=== PATIENT | female | born 1975 | race Caucasian/White ===

== ENCOUNTER → 2016-11-22 | Outpatient (CLI) | payer OTHER | LOC: CIMAGING 15:40 | PROVIDERS: ATTEND Family Medicine | DX: M25.511 Pain in right shoulder (principal) | CPT/HCPCS: 73000-PO ==

== ENCOUNTER 2017-09-02 15:16 | Inpatient (IN) | payer OTHER ==
[2017-09-02] MEDS ORDERED: CITRIC ACID/SODIUM CITRATE 30 ML UDCUP PO ONE (17:50)
[2017-09-02] MEDS ORDERED: LR 500 ML IV ONE (17:50)
[2017-09-02] MEDS ORDERED: LR 1,000 ML IV SCH (18:00)
[2017-09-02 18:34] LABS: PLATELET COUNT 206 10^3/uL (150-400)
--- NOTE | 2017-09-02 19:22 | PREANESOB ---
Obstetric Pre-Anesthesia Info - General Info Proposed Procedure: Repeat C section in early labor NPO Start Time: 12:30 : 4 Para: 1 CAREY: 09/12/17 Gestational Age: 38 week(s) and 4 day(s) - Info Status: Full Term - Labor Status Section History: Repeat Labor Epidural: No (Spinal anesthesia) Anesthesia Allergies/Adverse Reactions: Allergy/AdvReac Type Severity Reaction Status Date / Time No Known Allergies Allergy Verified 11/26/11 11:56 Home Medications: Medication Instructions Recorded Miscellaneous Medical Supply [NO 1 ea MISC AD 11/26/11 HOME MEDS] Amox Tr/K Clav (Augmentin) 500 mg PO TID #30 tab 06/06/14 [Augmentin 500/125 MG TAB (*)] Visit Medications: Generic Name Dose Route Start Last Admin Trade Name Freq PRN Reason Stop Dose Admin Lactated Ringer's 1,000 mls @ 125 mls/hr 09/02/17 18:00 Lr IV 09/03/17 17:59 CONT YEN Cefazolin Sodium/Dextrose 100 mls @ 200 mls/hr 09/02/17 19:30 Ancef 2 Gm IV 09/02/17 19:59 ONCE ONE Discontinued Medications Generic Name Dose Route Start Last Admin Trade Name Freq PRN Reason Stop Dose Admin Citric Acid/Sodium Citrate 30 ml 09/02/17 17:50 Bicitra PO 09/02/17 17:51 ONCALL ONE Lactated Ringer's 500 mls @ 0 mls/hr 09/02/17 17:50 Lr IV 09/02/17 17:51 ONCE ONE As Directed - Anesthesia History Response to Local Anesthetics: Normal Anesthesia & Operative History: No Prior Problems Family Anesthesia History: Negative - Social History Substance Use/Abuse: Denies - Vital Signs Latest Vital Signs (Nursing): Temp Pulse Resp BP Pulse Ox 37.3 C 60 16 133/70 H 09/02/17 18:27 09/02/17 18:27 09/02/17 18:27 09/02/17 18:27 Height/Weight (Nursing): Height 165.1 cm Weight 76.204 kg - Focused Exam Neck exam: FROM Mallampati Score: Class 1 Mouth exam: normal dental/mouth exam Pulmonary: no respiratory distress, no rales or rhonchi Cardiovascular: regular rate and rhythym, no murmur, rub, or gallop Labs: 09/02/17 18:15 09/02/17 18:15 Uric Acid 5.3 mg/dL (2.5-6.8) 09/02/17 18:15 Total Bilirubin 0.5 mg/dL (0.1-1.4) 09/02/17 18:15 Conjugated Bilirubin 0.4 mg/dL (0.0-0.5) 09/02/17 18:15 Unconjugated Bilirubin 0.1 mg/dL (0.0-1.1) 09/02/17 18:15 AST 24 IU/L (14-46) 09/02/17 18:15 ALT 27 IU/L (9-52) 09/02/17 18:15 Lactate Dehydrogenase 556 IU/L (313-618) 09/02/17 18:15 - Plan Consent Signed and on Chart: Yes
[2017-09-02] MEDS ORDERED: ceFAZolin 2 GM/DEXTROSE 100 ML IV ONE (19:30)
[2017-09-02] MEDS ORDERED: morphINE PF 5 MG/10 ML INJ ONE (19:36)
[2017-09-02] MEDS ORDERED: GLYCOPYRROLATE 0.2 MG/1 ML VIAL ONE (20:11)
[2017-09-02] MEDS ORDERED: PHENYLEPHRINE HCL 100 MCG/ML SYR ONE ×2 (20:11→20:32)
[2017-09-02] MEDS ORDERED: ONDANSETRON 4 MG/2 ML VIAL ONE (20:12)
[2017-09-02] MEDS ORDERED: OXYTOCIN 100 UNITS/10 ML VIAL ONE (20:12)
[2017-09-02] MEDS ORDERED: DEXAMETHASONE 4 MG/ML VIAL ONE (20:33)
--- NOTE | 2017-09-02 20:33 | GHP ---
[f rep st] PREOP HISTORY AND PHYSICAL DATE OF ADMISSION: 09/02/2017 ADMISSION DIAGNOSES: 1. Intrauterine at 38-4/7 weeks' gestation. 2. History of previous low transverse section. 3. Mild preeclampsia. HISTORY OF PRESENT ILLNESS: The patient is a 41-year-old 5, para 1-0-3- 1, who has a history of a previous low transverse section. She is scheduled for a repeat section on Monday; however, she presented to labor and delivery with complaint of contractions that have been increasing somewhat throughout the day. She also just feels off. The patient is not in active labor. However, she was noted to have blood pressures in the 140s over high 80s to 90 and a blood pressure of 160s over 100s. So decision was made to proceed with her repeat low transverse section. The patient had planned to have a repeat section and declined trial of labor. Risks and benefits of the procedure were reviewed with the patient, and patient has been properly consented. The patient's estimated date of confinement is 2017, dated by last menstrual period of 11/25/2016, consistent with a 1st- trimester ultrasound. She transferred to [facility] at 22 weeks' gestation and her course has been uncomplicated. PAST MEDICAL HISTORY: Negative with exception of possible interstitial cystitis. MEDICATIONS: vitamins and iron, baby aspirin, and vitamin D. SURGICAL HISTORY: section. ALLERGIES: No known drug allergies. FAMILY MEDICAL HISTORY: Noncontributory. SOCIAL HISTORY: Patient denies tobacco, alcohol, or drug use. FAMILY MEDICAL HISTORY: Noncontributory. 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 Periods every 28 days lasting 4-5 days. She is a 5, para 1-0-3-1. In 2013, she had a 5-week spontaneous . In 02/2014, she had a spontaneous at 6 weeks, and 02/2015 she had an emergent section done at [facility] at 37-3/7 weeks' gestation. She had severe preeclampsia. She was observed overnight and then progressed and had spontaneous rupture of membranes and had a somewhat urgent section for intolerance of labor. course was complicated by urinary retention. In 07/2015, she had a spontaneous . Patient denies any history of any abnormal Pap smears or sexually transmitted diseases. REVIEW OF SYSTEMS: 10-point review of systems is negative with the exception of just feeling off. She denies headache, changes in vision, nausea, vomiting, fevers, or chills. There is good movement. She denies any loss of fluid or vaginal bleeding. PHYSICAL EXAMINATION: VITAL SIGNS: Elevated with blood pressures of 130s to 160s over 80s to 90s. GENERAL APPEARANCE: Alert and oriented x3. MUSCULOSKELETAL: Grossly intact. PSYCH: Grossly intact. NECK: Mobile and supple. HEART: Rate is irregular irregular. LUNGS: Clear to auscultation bilaterally. ABDOMEN: Gravid, nondistended, nontender. EXTREMITIES: Reveal no calf tenderness or edema. PELVIC: Deferred. status is reassuring. LABORATORY DATA: PH labs are negative. The patient's labs: Blood type B positive, antibody screen negative. GBS positive. Rubella immune. HBsAg negative. HIV negative. Her histogram glucose was 90. ASSESSMENT/PLAN: 41-year-old, 5, para 1-0-3-1 at 38-4/7 weeks' gestation with a history of previous low transverse section. She will have a repeat low transverse section. She declines tubal ligation. Preeclampsia will be monitoring her blood pressures and start magnesium sulfate if they meet severe criteria. /[id number]/MODL MTDD
[2017-09-02] MEDS ORDERED: POLYETHYLENE GLYCOL 3350 17 GM PKT PO PRN (21:07)
[2017-09-02] MEDS ORDERED: BISACODYL 10 MG SUPP PR PRN (21:07)
[2017-09-02] MEDS ORDERED: MAGNESIUM HYDROXIDE 30 ML UDCUP PO PRN (21:07)
[2017-09-02] MEDS ORDERED: SIMETHICONE 80 MG TAB CHEW PO PRN (21:07)
[2017-09-02] MEDS ORDERED: LACTULOSE 20 GM/30 ML UDCUP PO PRN (21:07)
--- NOTE | 2017-09-02 21:16 | OBDEL ---
Info Type: Repeat Presentation at Delivery: Vertex GBS+: Yes Intrapartum Medications: Discontinued Medications Generic Name Dose Route Start Last Admin Trade Name [place] PRN Reason Stop Dose Admin Citric Acid/Sodium Citrate 30 ml 09/02/17 17:50 09/02/17 19:21 Bicitra PO 09/02/17 17:51 30 ml ONCALL ONE Administration Cefazolin Sodium/Dextrose 100 mls @ 200 mls/hr 09/02/17 19:30 09/02/17 19:21 Ancef 2 Gm IV 09/02/17 19:59 100 mls ONCE ONE Administration Indications for Delivery: Gestational Hypertension Vaginal Delivery - Labor and Delivery Onset of Contractions Date: 09/02/17 Onset of Contractions Time: 10:00 Operative Report - Delivery Pre-op Diagnoses: iup 38 4/7 weeks, hx of prior section, early labor declines trial of labor, gestational hypertension Post-op Diagnoses: same as preop plus occiput posterior History of Prior Section: Yes Number of Prior Sections: 1 Indications for Prior Section: Non-reas. Status Indications for Current Section: Elective/Repeat, Other (Specify) ( gestational hypertension) Surgeon: Terrie Camarena Felled Seam Operator Chainstitch: Aiyana Magana Anesthesiologist: Celeste Sotelo Complications: None EBL: 800 Data CAREY: 09/12/17 Gestational Age: 39 week(s) and 2 day(s) [place] Delivery Date: 09/02/17 Delivery Time: 20:13 Sex of Infant: Male Score (1 Min): 8 Score (5 Min): 9 ICD10 Worksheet Patient Problems: Problems Problem Status Onset delivery delivered Acute Gestational hypertension Acute - ICD10 Problem Qualifiers (1) delivery delivered (2) Gestational hypertension
[2017-09-02] MEDS ORDERED: KETOROLAC 30 MG/1 ML SDV ONE (21:20)
[2017-09-02] MEDS ORDERED: fentaNYL 100 MCG/2 ML INJ IVP PRN (21:21)
[2017-09-02] MEDS ORDERED: ONDANSETRON 4 MG/2 ML VIAL IVP PRN (21:21)
[2017-09-02] MEDS ORDERED: NALOXONE HCL 0.4 MG/ML INJ IVP PRN (21:21)
[2017-09-02] MEDS ORDERED: HYDROmorphONE/DILAUDID 1 MG/ML INJ IVP PRN (21:21)
--- NOTE | 2017-09-02 21:35 | PDMN ---
Medical Necessity Medical necessity: C/M review: Patient meets INPT criteria [facility] S-350 Delivery: viable male . MD anticipates > 2 MN LOS for eval and TX of above.
[2017-09-03] MEDS: KETOROLAC 30 MG/1 ML SDV IVP SCH ×3 (03:37→15:22)
[2017-09-03] MEDS: HYDROCODONE/APAP 5/325 TAB PO PRN ×6 (03:45→22:11)
--- NOTE | 2017-09-03 05:24 | GOP ---
[f rep st] OPERATIVE REPORT DATE OF OPERATION: 09/02/2017 SURGEON: Terrie Camarena DO INDUSTRIAL CLEANER: Aiyana Magana CNM. ANESTHESIA: Spinal. ANESTHESIOLOGIST: Celeste Sotelo MD. PREOPERATIVE DIAGNOSIS: 1. Intrauterine at 38 and 4/7 weeks gestation. 2. History of previous low-transverse section. Declines trial of labor. 3. Early labor. 4. Gestational hypertension. POSTOPERATIVE DIAGNOSIS: 1. Intrauterine at 38 and 4/7 weeks gestation. 2. History of previous low-transverse section. Declines trial of labor. 3. Early labor. 4. Gestational hypertension. 5. Occiput posterior. PROCEDURE PERFORMED: Primary low-transverse section. FINDINGS: 1. Viable male in the occiput posterior cephalic presentation, delivered at 2012. Apgars wer e 8 and 9. 2. Intact placenta with 3-vessel cord. 3. Normal ovaries, uterus, and tubes. ESTIMATED BLOOD LOSS: 800 cc. INDICATIONS: Patient is a 41-year-old 5, para 1-0-3-1, who is 38 and 4/7 weeks' gestation. She has a history of previous low-transverse section and is scheduled for repeat n ext week. She did not feel very well today and began having contractions that were mild but increasi ng in frequency and intensity over the last several hours. She presented to Labor and Delivery and w as noted to have elevated blood pressures of the 130s to 160s/80s. Decision was made to proceed with a repeat section for diagnosis of gestational hypertension. Risks and benefits of the proc edure were reviewed with the patient, and the patient was properly consented. DESCRIPTION OF PROCEDURE: Patient was taken to the operating room with intravenous fluids in place. She was given 2 g of Ancef intravenously and seated on the operating room table where spinal anesthe geeta was obtained. She was then repositioned into the dorsal supine position with a leftward tilt and prepped and draped in normal sterile fashion. A Rubalcava catheter was placed. Venodynes were placed o n her lower extremities. Anesthesia was assessed and found to be adequate. A Pfannenstiel skin incision was then made 2 fingerbreadths above the pubic symphysis. The incision was then carried through to the underlying layer of fascia with a Bovie. The fascia was then nicked in the midline, and the fascial incision was extended laterally. The superior aspect of the fascial incision was then grasped with Beto, tented up, and the underlying rectus muscle dissected off blun tly with the Bovie. Attention was then turned to the inferior aspect of the fascial incision, which in a similar fashion was grasped with Beto's, tented up, and the underlying rectus muscle dissected off bluntly and with Bovie. The rectus muscle was then in the midline. The peritoneum wa s identified, tented up, and entered sharply with the Metzenbaum scissors. The incision was extended superiorly and inferiorly with excellent visualization of the bladder. The bladder blade was then i nserted. The vesicouterine peritoneum was then identified, tented up, and entered sharply with the M etzenbaum scissors. The incision was extended laterally, and a bladder flap was created digitally. The bladder blade was then reinserted. The uterus was then incised in low transverse fashion with th e scalpel. Clear fluid was noted. The uterine incision was extended laterally. The infant's head w as then delivered through the incision. Delayed cord clamping was done, and the cord was clamped x2 and cut, and the infant was handed off to awaiting nurse practitioner. Intact placenta with 3-vessel cord delivered without difficulty. The uterus was then cleared of all clots and debris and rotated to look at the ovaries and tubes, which were unremarkable. It was not exteriorized. The bl adder blade was then inserted. Four clamps were then used to grasp the angles of the uterus, and the hysterotomy was closed with 0 Vicryl in a running locked fashion. A 2nd 0 Vicryl stitch was used to imbricate the uterine incision. Hemostasis was assured. The gutters were cleared of all clots and debris. Peritoneum was reapproximated with 3-0 Vicryl in a running fashion. Rectus muscles reapprox imated with 2-0 Vicryl. The fascia was closed with 0 Vicryl in a running fashion. Ai's tissue w as reapproximated with 2-0 Vicryl in a running fashion. Subcuticular tissue was reapproximated with 3-0 Vicryl in a running fashion. The skin was then closed with manuel. Sponge, lap, and needle cou nt were correct x2 patient was transported to recovery room in stable condition. Bhavin #: [id number]/MODL
[2017-09-03] MEDS: SENNOSIDES/DOCUSATE SODIUM TAB PO SCH ×2 (08:17→22:11)
--- NOTE | 2017-09-03 10:40 | OBPP ---
Progress Note Assessment/Plan: Assessment: POD1 s/p planned RLTCS, presented at 38w4d with ctx's and newly increased BP - getting dx of Gestational HTN. - Routine cares, doing well subjectively. - Will dc catheter this AM and monitor voids and PVR's each time. Long discussion regarding her h/o retention. Apparently stayed in the hospital for up to a week with elevated PVR's, not emptying well, unclear true etiology. May need catheterization (straight or winn) if PVR's are quite high >700, for lesser volumes our goal for home will be < 100-150cc PVR to ensure she's emptying well enough. If PVR's are between 100-700 here PP okay to give Keisha a short amount of time to try again, but if next void not substantially more successful please contact orthotic/prosthetic practitioner doc. - BPS normal to low mild range, no concerning sx. - Would like to go home tomorrow if able, maybe Monday depending on BP and bladder. JM Subjective/ Course: 09/03/17 15:26 Keisha is doing very well this AM. Had a good night, a little nervous to get her catheter out due to h/o urinary retention after last delivery. Pain well controlled, tolerating diet, up and around. Objective: 09/03/17 05:45 09/02/17 18:15 Patient ABO/Rh A POSITIVE 09/02/17 18:40 Uric Acid 5.3 mg/dL (2.5-6.8) 09/02/17 18:15 Total Bilirubin 0.5 mg/dL (0.1-1.4) 09/02/17 18:15 Conjugated Bilirubin 0.4 mg/dL (0.0-0.5) 09/02/17 18:15 Unconjugated Bilirubin 0.1 mg/dL (0.0-1.1) 09/02/17 18:15 AST 24 IU/L (14-46) 09/02/17 18:15 ALT 27 IU/L (9-52) 09/02/17 18:15 Lactate Dehydrogenase 556 IU/L (313-618) 09/02/17 18:15 Temp Pulse Resp BP Pulse Ox 37.1 C 59 L 16 113/72 94 09/03/17 08:00 09/03/17 08:00 09/03/17 08:00 09/03/17 08:00 09/03/17 08:00 Uterine Position/Fundal Height: At Umbilicus Uterine Tone: Firm Physical Exam - Physical Exam Abdomen: incision (Bandaged, no shadowing)
[2017-09-03] MEDS ORDERED: KETOROLAC 30 MG/1 ML SDV IVP SCH (22:00)
[2017-09-03] MEDS: IBUPROFEN 600 MG TAB PO PRN (22:11)
[2017-09-04] MEDS: IBUPROFEN 600 MG TAB PO PRN ×2 (03:57→11:58)
[2017-09-04] MEDS: HYDROCODONE/APAP 5/325 TAB PO PRN ×4 (03:57→16:48)
[2017-09-04] MEDS: SENNOSIDES/DOCUSATE SODIUM TAB PO SCH (08:14)
[2017-09-04 08:31] VITALS: BP 131/90
--- NOTE | 2017-09-04 09:16 | POSTANESTH ---
Post Anesthetic Evaluation Cardiovascular Status: Normal, Stable Respiratory Status: Normal, Stable Level of Consciousness/Mental Status: Can Participate in Eval Pain Control: Adequate, Prn Tx Ordered Nausea/Vomiting Control: Adequate, Prn Tx Ordered Complications Possibly Related to Anesthesia: None Noted (No BOWSER Needle site dry no redness.)
--- NOTE | 2017-09-04 14:31 | OBPP ---
Progress Note Assessment/Plan: Assessment: 1) s/p RLTCS @ 38 4/7 wks secondary to ctx's and gestational HTN POD # 2 - pt is stable 2) Anemia - pt is asymtomatic 3) Urinary retention Plan: Long discussion with pt regarding her h/o retention with G1-she stayed in the hospital for up to a week with elevated PVR's and no true etiology found; still having elevated PVRs ranging from 337-537 at this time and we are not able to d/ c home without a winn; recommend discharging home with a winn catheter in place and RTO in 3-4 days for voiding trial; pt would like to straight cath herself and discussed higher risk of infection with this BPs stable at this time and pt is asymptomatic Discharge instructions reviewed with pt [place] to be removed prior to d/c home and steri strips applied Rx given for [place] and Motrin Cont PNV, iron, and colace Pelvic rest RTC in 3-4 days for voiding trial and again in 2, 4 and 6 weeks for pp check 09/04/17 14:40 Subjective/ Course: 09/03/17 15:26 Keisha is doing very well this AM. Had a good night, a little nervous to get her catheter out due to h/o urinary retention after last delivery. Pain well controlled, tolerating diet, up and around. 09/04/17 14:30 Pt seen and examined. She is doing well with no complaints. Pain is controlled with [place] and Motrin. She is OOB, kareem regular diet, voiding but not completely emptying her bladder, and passing flatus. No BM yet. Mod lochia. BF well without difficulty. Would really like to go home today and is tearful about having a catheter. Objective: 09/03/17 05:45 09/02/17 18:15 Patient ABO/Rh A POSITIVE 09/02/17 18:40 Uric Acid 5.3 mg/dL (2.5-6.8) 09/02/17 18:15 Total Bilirubin 0.5 mg/dL (0.1-1.4) 09/02/17 18:15 Conjugated Bilirubin 0.4 mg/dL (0.0-0.5) 09/02/17 18:15 Unconjugated Bilirubin 0.1 mg/dL (0.0-1.1) 09/02/17 18:15 AST 24 IU/L (14-46) 09/02/17 18:15 ALT 27 IU/L (9-52) 09/02/17 18:15 Lactate Dehydrogenase 556 IU/L (313-618) 09/02/17 18:15 Temp Pulse Resp BP Pulse Ox 36.7 C 80 17 131/90 H 96 09/04/17 08:00 09/04/17 08:00 09/04/17 08:00 09/04/17 08:00 09/04/17 08:00 Uterine Position/Fundal Height: Umbilicus -2 Uterine Tone: Firm Physical Exam - Physical Exam General Appearance: alert, no apparent distress, mild distress Respiratory: lungs clear, normal breath sounds Cardiac/Chest: regular rate, rhythm Abdomen: normal bowel sounds, non-tender, soft, flatus (+), incision (C/D/I with manuel) Extremities: non-tender, normal inspection Skin: normal color, warm/dry Neuro/Psych: alert, normal mood/affect, oriented x 3
--- NOTE | 2017-09-04 14:41 | OBGCSDC ---
General Delivery Information - General Info : 4 Para: 2 Abortions: 3 Type: Repeat L&D Analgesia/Anesthesia Type: Spinal Admission Date: 09/02/17 Labs: Patient ABO/Rh A POSITIVE 09/02/17 18:40 Hct 34.1 % (38.0-47.0) L 09/03/17 05:45 - Hospital Course : 09/03/17 15:26 Keisha is doing very well this AM. Had a good night, a little nervous to get her catheter out due to h/o urinary retention after last delivery. Pain well controlled, tolerating diet, up and around. 09/04/17 14:30 Pt seen and examined. She is doing well with no complaints. Pain is controlled with [place] and Motrin. She is OOB, kareem regular diet, voiding but not completely emptying her bladder, and passing flatus. No BM yet. Mod lochia. BF well without difficulty. Would really like to go home today and is tearful about having a catheter. - Delivery Providers Surgeon: Terrie Camarena Pourer Metal: Aiyana Magana Anesthesiologist: Celeste Sotelo - Delivery Number of Prior Sections: 1 Indications for Current Section: Elective/Repeat, Other (Specify) ( gestational hypertension) Intra-op Complications: None EBL: 800 Data CAREY: 09/12/17 Gestational Age: 38 week(s) and 6 day(s) [place] Delivery Date: 09/02/17 Delivery Time: 20:13 Sex of Infant: Male [place] Weight (gm): 3002 g Score (1 Min): 8 Score (5 Min): 9 Discharge Information - Discharge Information Condition: Good Instruction/Follow Up: See Instruction Sheet (3-4 days for a voiding trial), Two Weeks, Four Weeks, Six Weeks
== END 2017-09-04 16:54 | disposition home or self-care (01) | DRG 766 ==
LOC: FLD 15:16 → OBSVTOIN 15:16 → FOB 23:00
PROVIDERS: ADMIT Obstetrics & Gynecology; ATTEND Obstetrics & Gynecology
PROC: 10D00Z1 Extraction of Products of Conception, Low, Open Approach (ICD-10-PCS; principal; 2017-09-02)
PROC: 3E03329 Introduction of Other Anti-infective into Peripheral Vein, Percutaneous Approach (ICD-10-PCS; principal; 2017-09-02)
DX: O34.211 Maternal care for low transverse scar from previous cesarean delivery (principal); O13.4 Gestational [pregnancy-induced] hypertension without significant proteinuria, complicating childbirth; O99.824 Streptococcus B carrier state complicating childbirth; O64.0XX0 Obstructed labor due to incomplete rotation of fetal head, not applicable or unspecified; O99.02 Anemia complicating childbirth; R33.9 Retention of urine, unspecified; D64.9 Anemia, unspecified; E55.9 Vitamin D deficiency, unspecified; Z87.59 Personal history of other complications of pregnancy, childbirth and the puerperium; Z3A.38 38 weeks gestation of pregnancy; Z37.0 Single live birth
CPT/HCPCS: J0690; J1100; J1170; J1885; J2274; J2370; J2405; J2590